=== PATIENT | male | born 1995 | race Caucasian/White ===

== ENCOUNTER 2019-09-18 12:18 | Emergency (ER) | payer MEDICAID, OTHER ==
[~2019-09-18] VITALS: Ht 165.1 cm; Wt 97.8 kg
[2019-09-18] MEDS ORDERED: LORazepam 1MG TABLET ONE ×2 (13:12→13:16)
[2019-09-18] MEDS ORDERED: ACETAMINOPHEN 500 MG TABLET ONE (13:15)
[2019-09-18 13:17] LABS: RAPID INFLUENZA A POSITIVE (Negative); RAPID INFLUENZA B Negative (Negative)
[2019-09-18 13:21] LABS: BASOPHILS # (AUTO) 0.02 x10^3/uL (0-0.1); BASOPHILS % (AUTO) 0 % (0-1); EOSINOPHILS # (AUTO) 0.01 x10^3/uL (0-0.4); EOSINOPHILS % (AUTO) 0 % (1-7); LYMPHOCYTES # (AUTO) 0.96 x10^3/uL (1-3.4); LYMPHOCYTES % (AUTO) 15 % (22-44); MD NO; MEAN CORPUSCULAR HEMOGLOBIN 30.9 pg (27.5-34.5); MEAN CORPUSCULAR VOLUME 90.8 fL (81-97); MEAN PLATELET VOLUME 8.2 fL (7.4-10.4); MONOCYTES # (AUTO) 0.74 x10^3/uL (0.2-0.8); MONOCYTES % (AUTO) 12 % (2-9); NEUTROPHILS # (AUTO) 4.75 x10^3/uL (1.8-6.8); NEUTROPHILS % (AUTO) 73 % (42-75); PLATELET COUNT 237 x10^3/uL (130-400); RED BLOOD COUNT 4.43 x10^6/uL (4.38-5.82); RED CELL DISTRIBUTION WIDTH 13.5 % (9.4-14.8)
[2019-09-18 13:30] LABS: ALANINE AMINOTRANSFERASE 222 U/L (12-78); ALBUMIN 3.6 g/dL (3.4-5.0); ANION GAP 8 mmol/L (5-15); CALCIUM 8.4 mg/dL (8.5-10.1); CHLORIDE 106 mmol/L (98-107); CREATININE 1.15 mg/dL (0.7-1.3)
[2019-09-18 13:32] LABS: ALKALINE PHOSPHATASE 89 U/L (45-117); BILIRUBIN,TOTAL 0.4 mg/dL (0.2-1.0); TOTAL PROTEIN 7.7 g/dL (6.4-8.2)
--- NOTE | 2019-09-18 13:40 | NUR ---
UPON BEING INFORMED THAT PT IS POSITIVE FOR FLU, ISOLATION PRECAUTIONS PUT IN PLACE.
[2019-09-18 13:41] LABS: MICROSCOPIC NOT IND
[2019-09-18 13:46] LABS: CULTURE INDICATED? NO
[2019-09-18] MEDS ORDERED: SODIUM CHLORIDE 0.9% 1,000ML IVBOLUS ONE (14:00)
[2019-09-18] MEDS ORDERED: ACETAMINOPHEN 500 MG TABLET PO ONE (14:00)
[2019-09-18] MEDS ORDERED: LORazepam 1MG TABLET PO ONE (14:00)
--- NOTE | 2019-09-18 14:17 | NUR ---
IV FLUID BOLUS CONTINUES TO INFUSE. PT RESTING QUIETLY. MOTHER AT BEDSIDE.
[2019-09-18] MEDS ORDERED: IBUPROFEN 800 MG TABLET PO ONE (15:30)
[2019-09-18] MEDS ORDERED: IBUPROFEN 800 MG TABLET ONE (15:35)
[2019-09-18 15:39] VITALS: BP 92/46
--- NOTE | 2019-09-18 15:41 | NUR ---
AWOKE PT AND GIVEN MOTRIN PER ORDERS. WILL CONTINUE TO MONITOR. MOTHER REMAINS AT BEDSIDE.
--- NOTE | 2019-09-18 16:12 | NUR ---
Patient given discharge instructions and they have confirmed that they understand the instructions. Patient ambulatory with steady gait.
== END 2019-09-18 16:14 | disposition home or self-care (01) ==
LOC: ED 16:00
DX: J10.1 Influenza due to other identified influenza virus with other respiratory manifestations (principal); E86.0 Dehydration; R00.0 Tachycardia, unspecified
CPT/HCPCS: 36415; 71045; 80053; 81003; 83605; 84145; 85025; 87040; 87400; 96360; 99284; J7030